=== PATIENT | female | born 1955 | race Caucasian/White ===

== ENCOUNTER 2017-12-02 07:35 | Day surgery (SDC) | payer BC ==
[~2017-12-02 07:35] MED LIST: Buffered Lidocaine 0.9% SYRIN* 5 ML/SYR SYRINGE INTRADERM ONE; Famotidine IV* 10 MG/ML 2 ML (20 mg) IV ONE
[2017-12-02] MEDS ORDERED: Famotidine IV* 10 MG/ML 2 ML (20 mg) ONE (08:04)
[2017-12-02] MEDS ORDERED: Bupivacaine 0.25% SDV* 30 ML ONE (08:18)
[2017-12-02] MEDS ORDERED: Midazolam* 1 MG/ML 2 ML VIAL (2 MG) ONE ×2 (08:29→08:52)
[2017-12-02] MEDS ORDERED: fentaNYL* 50 MCG/ML 2 ML VIAL (100 MCG VIAL) ONE (08:29)
[2017-12-02] MEDS ORDERED: Propofol* 10 MG/ML 20 ML BTL IV PUSH ONE (08:29)
[2017-12-02 09:25] VITALS: BP 104/59
[2017-12-02] MEDS ORDERED: Metoclopramide IV* 5 MG/ML 2 ML VIAL ONE (10:15)
[2017-12-02] MEDS ORDERED: Ketorolac INJ* 30 MG/ML 1 ML VIAL ONE (10:15)
--- NOTE | 2017-12-02 13:04 | OP ---
DATE OF OPERATION: 12/02/17 [facility] DATE OF : 59 SURGEON: Joseph Powers MD CORPORATE TRAFFIC MANAGER: DANILO Ta ANESTHESIOLOGIST: Dr. Callejas. ANESTHESIA: Local MAC. PRE-OP DIAGNOSES: 1. Left trigger thumb. 2. Left middle trigger finger. POST-OP DIAGNOSES: 1. Left trigger thumb. 2. Left middle trigger finger. OPERATIVE PROCEDURE: 1. Release of left trigger thumb with release of A1 laura. 2. Release of left middle finger with release of left middle trigger finger with release of A1 laura. INDICATIONS: Rama has a very severe left middle trigger finger and also some left trigger thumb problems. These have recurred. We talked to her about risks and benefits and she wanted to do the release. ESTIMATED BLOOD LOSS: 2 mL. COMPLICATIONS: None. FINDINGS: None. DESCRIPTION OF PROCEDURE: Rama was seen in the preoperative holding area. The correct side, site, and procedure were identified. We came back to the operating room where the arm was prepped and draped in the usual fashion. A time-out was performed. A transverse 1 cm incision was made over the left thumb A1 laura. Dissection was carried down bluntly and the digital nerves were retracted. The A1 laura was released longitudinally in line with the tendon with the #15 blade. This was extended proximally and distally with the tenotomy scissors taking care to preserve the oblique fully. Once the tendon was completely released, we irrigated out the wound and the skin was closed with 4-0 nylon suture. I next made an oblique incision over the middle finger A1 laura in line with the skin crease. The dissection was bluntly carried down, the tendon sheath was exposed. The #15 blade was used to longitudinally incise the A1 laura on the radial third. The release was again completed distally and proximally with the tenotomy scissors. Once there were no more areas of stricture around the tendon, we irrigated out the wound. The skin was closed with 4-0 nylon suture. The wounds were dressed, tourniquet was deflated and she was taken to the recovery room in stable condition. [id number]/CPS #: [id number] MTDD
== END 2017-12-02 09:42 | disposition home or self-care (01) ==
LOC: OREAST 07:35
PROVIDERS: ATTEND Orthopaedic Surgery Hand Surgery
DX: M65.312 Trigger thumb, left thumb (principal); M65.332 Trigger finger, left middle finger; E11.9 Type 2 diabetes mellitus without complications; Z79.84 Long term (current) use of oral hypoglycemic drugs; I10 Essential (primary) hypertension; M19.90 Unspecified osteoarthritis, unspecified site
CPT/HCPCS: J1885; J2250; J2704; J2765; J3010

== ENCOUNTER 2019-06-23 10:05 | Emergency (ER) | payer BC ==
--- OUTSIDE RECORDS SUMMARY | 2019-06-23 11:26 | XMS REPORT | Continuity of Care Document ---
:1955 External Reference #:[id number] Author Name Pat Painting MD Address [address] [place] [id number] Care Team Providers Name Role Phone Jax Hartley - Pain Medicine Care Team Information Orthopedics Nurse Anibal Sanz MD - Surgery Care Team Information Orthopedics Nurse [phone] Luna Randhawa MD - Orthopaedic Care Team Information Orthopedics Nurse Surgery Joseph Powers DR - Orthopaedic Care Team Information Orthopedics Nurse Surgery [employer] [facility] Care Team Information Orthopedics Nurse [phone] Live [place] MD - Care Team Information Orthopedics Nurse [phone] Gastroenterology Problems Active Problems Provider Date Type 2 diabetes mellitus Pat Painting MD Onset: 07/23/2009 Vitamin D deficiency Pat Painting MD Onset: 04/03/2009 Disorder of bone Pat Painting MD Onset: 11/18/2007 Benign essential hypertension Pat Painting MD Onset: 10/22/2004 Hypothyroidism Pat Painting MD Onset: 07/19/2014 Chronic cystitis Pat Painting MD Onset: 09/03/2015 Diaphragmatic hernia Pat Painting MD Onset: 02/25/2016 Low back pain Pat Painting MD Onset: 08/17/2017 Chronic kidney disease stage 3 Pat Painting MD Onset: 11/25/2017 Dysphagia Pat Painting MD Onset: 04/14/2018 Mixed hyperlipidemia Pat Painting MD Onset: 07/04/2018 Social History Type Date Description Comments Sex Unknown Tobacco Use Start: Unknown Never Smoked Cigarettes Smoking Status Reviewed: 04/06/19 Never Smoked Cigarettes ETOH Use 04/06/2019 Rarely consumes alcohol 1 drink per month Tobacco Use Start: Unknown Patient has never smoked Allergies, Adverse Reactions, Alerts Active Allergies Reaction Severity Comments Date Codeine Vomiting 07/19/2014 Metformin diarrhea 03/22/2015 Medications Active Medications SIG Qnty Indications Ordering Provider Date Vitamin D3 1 by mouth Title Coordinator 6 06/07/2018 2000Unit every day Tablets Atorvastatin Calcium 1 by mouth 90tabs E11.9 Pat Painting MD 11/25/2017 10mg every day Tablets E78.2 Ramipril 1 by mouth every 90caps I10 Mert 11/25/2017 2.5mg Capsules day MD Pat Aspirin Ec 1 by mouth daily 30tabs K55.031 Mert, 05/12/[address] Pat MD Chlorhexidine Gluconate 15 milliliters 473ml Mert, 11/25/2015 0.12% rinse and spit MD Pat Solution twice a day Pantoprazole Sodium 1 by mouth twice a 180tabs R13.10 Mert, 03/22/2015 40mg Tablets day MD SHEEBA Stewart Levothyroxine Sodium take 1 tablet by 90tabs E03.9 Mert, 10/27/2011 75mcg mouth once daily MD Pat Tablets Propranolol HCL ER take 1 capsule by 180caps I10 Mert, 09/07/2008 160mg Caps ER mouth twice a day MD Pat 24HR Hydrochlorothiazide take 1 capsule by 90caps I10 Mert, 01/07/2007 12.5mg mouth once daily MD Pat Capsules Lidocaine may apply up to 3 Unknown 5% Patches patches at a time x 12 hours per day Vesicare 1 po qd N30.20 Oh, In MD Doyle 5mg Tablets Lyrica 1 by mouth three M12.9 Unknown 100mg Capsules times a day M54.5 Immunizations CPT Code Status Date Vaccine Reaction Lot # 56035 Given 04/19/2019 Influenza Virus Vaccine,Quadrivalent,Split,Prese rv Free, 0.5mL,[place] [address] Given 04/06/2019 Prevnar 13 Pneumococal Conjugate [id number] Vaccine Q2039 Given 06/10/2018 Flu Vaccine NOS 59915 Given 01/31/2018 Hepatitis B Vaccine Adult Dosage [id number] 19337 Given 08/17/2017 Pneumococcal 23 Immunization [id number] Adult Or Immunosuppressed Patient 34812 Given 06/08/2017 Hepatitis B Vaccine Adult Dosage Pt tolerated well [id number] 00232 Given 04/08/2017 Hepatitis B Vaccine Adult Dosage [id number] Q2035 Given 04/03/2017 Afluria Imunization Q2037 Given 03/31/2016 Fluvirin Immunization 10026 Given 12/25/2015 Tdap (Adacel) Ages 7 And Above Only Q2035 Given 03/27/2015 Afluria Imunization [facility] Q2039 Given 03/20/2015 Flu Vaccine NOS 88777 Given 06/09/2013 Tdap (Adacel) Ages 7 And Above Only 88311 Given 04/20/2013 Afluria Or Fluvirin Flu Vac Intramuscular 12365 Given 09/21/2010 Tetanus And Diptheria Toxoid 7 Years And Older Preserv Free 01164 Given 04/19/2007 Afluria Or Fluvirin Flu Vac Intramuscular 66649 Refused 07/04/2018 Shingrix (Shingles) Zoster Vaccine HZV, Recombinant, Subunit, Adj Q2039 Refused 05/31/2018 Flu Vaccine NOS has not gotten flu shot yet, will get when feeling better Vital Signs Date Vital Result Comment 06/16/2019 3:53pm Weight 184.00 lb Heart Rate 65 /min BP Systolic 130 mmHg BP Diastolic 76 mmHg Respiratory Rate 16 /min Height 62.5 inches 5'2.50" O2 % BldC Oximetry 98 % Ra BMI (Body Mass Index) 33.1 kg/m2 04/06/2019 4:33pm Weight 189.00 lb Heart Rate 80 /min BP Systolic 124 mmHg BP Diastolic 70 mmHg Respiratory Rate 18 /min Height 62.5 inches 5'2.50" BMI (Body Mass Index) 34.0 kg/m2 Results Test Acquired Date Facility Test Result H/L Range Note Basic Metabolic 06/09/2019 [facility] Glucose 127 mg/ dL High 74-106 1 Panel Lab Dept [phone] BUN 15 mg/dL Normal 7-18 Creatinine 1.2 mg/dL Normal 0.6-1.3 Glom Filtration Rate, Estimate 48 mL/min >60 If 59 mL/min >60 2 BUN/Creat 12.5 ratio Sodium 140 mmol/L Normal 136-145 Potassium 3.7 mmol/L Normal 3.5-5.1 Chloride 106 mmol/L Normal 98-107 Carbon Dioxide 31 mmol/L Normal 21-32 Anion Gap 3 mEq/L Low 8-16 Calcium 8.7 mg/dL Normal 8.5-10.1 Laboratory test 06/09/2019 [facility] Thyroid Stim 1.20 Normal 0.30-4.20 finding Lab Dept Hormone uIU/mL [phone] LDL Cholesterol 06/09/2019 [facility] Cholesterol 109 mg/dL <200 3 Profile Lab Dept [phone] Triglycerides 89 mg/dL <150 4 HDL Cholesterol 49 mg/dL >40 5 LDL-Cholesterol 42 mg/dL < 100 6 Glycohemoglobin A1c 06/09/2019 [facility] Glycohemoglobin 6.5 % High 4.2-6.3 7 (315)- - (A1c) eAG 140 mg/dL Basic Metabolic 03/30/2019 [facility] Glucose 129 mg/ dL High 74-106 Panel Lab Dept [phone] BUN 18 mg/dL Normal 7-18 Creatinine 1.3 mg/dL Normal 0.6-1.3 Glom Filtration Rate, Estimate 44 mL/min >60 If 54 mL/min >60 8 BUN/Creat 13.8 ratio Sodium 141 mmol/L Normal 136-145 Potassium 3.8 mmol/L Normal 3.5-5.1 Chloride 105 mmol/L Normal 98-107 Carbon Dioxide 28 mmol/L Normal 21-32 Anion Gap 8 mEq/L Normal 8-16 Calcium 9.2 mg/dL Normal 8.5-10.1 Glycohemoglobin 03/30/2019 [facility] Glycohemoglobin 6.0 % Normal 4.2-6.3 9 A1c Lab Dept (A1c) [phone] eAG 126 mg/dL Laboratory 03/30/2019 [facility] Thyroid Stim 0.61 Normal 0.30-4.20 test finding Lab Dept Hormone uIU/mL [phone] LDL 03/30/2019 [facility] Cholesterol 113 mg/dL < 200 10 Cholesterol Lab Dept Profile [phone] Triglycerides 139 mg/dL <150 11 HDL Cholesterol 45 mg/dL >40 12 LDL-Cholesterol 40 mg/dL < 100 13 1 E11.9 E03.9 N18.3 E78.2 2 Note: Persistent reduction for 3 months or more in an eGFR <60 mL/min/1.73 m2 defines CKD. Patients with eGFR values >/=60 mL/min/1.73 m2 may also have CKD if evidence of persistent proteinuria is present. The original MDRD equation for estimated GFR is not valid for patients less than 18 years of age. Additional information may be found at www.kdoqi.org. 3 Reference Guidelines*: Desirable: ........... < 200 mg/dL Borderline High: ..... 200-239 mg/dL High: ................ >= 240 mg/dL * The National Cholesterol Education Program (NCEP) 4 Reference Guidelines*: Normal: ............. < 150 mg/dL Borderline High: .... 150-199 mg/dL High: ............... 200-499 mg/dL Very High: .......... > 500 mg/dL * Source: National Cholesterol Education Program (NCEP) 5 Reference Guidelines*: Low HDL: ..... < 40 mg/dL Normal: ..... 40-60 mg/dL Desirable: ... > 60 mg/dL *The National Cholesterol Education Program(NCEP) 6 Reference Guidelines*: Optimal:........... <100 mg/dL Near Optimal....... 100-129 mg/dL Borderline High.... 130-159 mg/dL High............... 160-189 mg/dL Very High.......... >=190 mg/dL * Source: National Cholesterol Education Program (NCEP) 7 Elevated levels of HbA1c suggest the need for more aggressive treatment of glycemia. The [place] [employer] recommends that a primary goal of therapy should be a HbA1c of <7% and that physicians should re-evaluate the treatment regimen in patients with HbA1c values consistently >8%. 8 Note: Persistent reduction for 3 months or more in an eGFR <60 mL/min/1.73 m2 defines CKD. Patients with eGFR values >/=60 mL/min/1.73 m2 may also have CKD if evidence of persistent proteinuria is present. The original MDRD equation for estimated GFR is not valid for patients less than 18 years of age. Additional information may be found at www.kdoqi.org. 9 Elevated levels of HbA1c suggest the need for more aggressive treatment of glycemia. The [place] [employer] recommends that a primary goal of therapy should be a HbA1c of <7% and that physicians should re-evaluate the treatment regimen in patients with HbA1c values consistently >8%. 10 Reference Guidelines*: Desirable: ........... < 200 mg/dL Borderline High: ..... 200-239 mg/dL High: ................ >= 240 mg/dL * The National Cholesterol Education Program (NCEP) 11 Reference Guidelines*: Normal: ............. < 150 mg/dL Borderline High: .... 150-199 mg/dL High: ............... 200-499 mg/dL Very High: .......... > 500 mg/dL * Source: National Cholesterol Education Program (NCEP) 12 Reference Guidelines*: Low HDL: ..... < 40 mg/dL Normal: ..... 40-60 mg/dL Desirable: ... > 60 mg/dL *The National Cholesterol Education Program(NCEP) 13 Reference Guidelines*: Optimal:........... <100 mg/dL Near Optimal....... 100-129 mg/dL Borderline High.... 130-159 mg/dL High............... 160-189 mg/dL Very High.......... >=190 mg/dL * Source: National Cholesterol Education Program (NCEP) Procedures Date Code Description Status 01/24/2018 251038991 Bone Mineral Density Test Completed 10/23/2017 [id number] Diabetic Retinal Eye Exam Completed 04/02/2016 [id number] Colonoscopy Completed 01/23/2016 [id number] Bone Mineral Density Test Completed 04/21/2012 [id number] Diabetic Foot Exam Completed Medical Devices Description No Information Available Encounters Type Date Location Provider Dx Diagnosis Office Visit 04/06/2019 4:15p [facility] Pat Painting MD E66.9 Obesity, unspecified E11.9 Type 2 diabetes mellitus without complications E55.9 Vitamin D deficiency, unspecified R51 Headache I10 Essential (primary) hypertension E03.9 Hypothyroidism, unspecified N30.20 Other chronic cystitis without hematuria K44.9 Diaphragmatic hernia without obstruction or gangrene E78.2 Mixed hyperlipidemia R13.10 Dysphagia, unspecified Z68.33 Body mass index (BMI) 33.0-33.9, adult N18.3 Chronic kidney disease, stage 3 (moderate) M54.5 Low back pain M85.89 Oth disrd of bone density and structure, multiple sites Z23 Encounter for immunization Z68.34 Body mass index (BMI) 34.0-34.9, adult Assessments Date Code Description Provider 06/16/2019 E66.9 Obesity, unspecified Pat Painting MD 06/16/2019 E11.9 Type 2 diabetes mellitus without complications Pat Painting MD 06/16/2019 E55.9 Vitamin D deficiency, unspecified Pat Painting MD 06/16/2019 I10 Essential (primary) hypertension Pat Painting MD 06/16/2019 N30.20 Other chronic cystitis without hematuria Pat Painting MD 06/16/2019 K44.9 Diaphragmatic hernia without obstruction or Pat Painting MD gangrene 06/16/2019 E78.2 Mixed hyperlipidemia Pat Painting MD 06/16/2019 R13.10 Dysphagia, unspecified Pat Painting MD 06/16/2019 N18.3 Chronic kidney disease, stage 3 (moderate) Pat Painting MD 06/16/2019 M54.5 Low back pain Pat Painting MD 06/16/2019 M85.89 Other specified disorders of bone density and Pat Painting MD structure, mul 06/16/2019 E03.9 Hypothyroidism, unspecified Pat Painting MD 06/16/2019 Z12.31 Encounter for screening mammogram for malignant Pat Painting MD neoplasm of breast 06/16/2019 Z68.33 Body mass index (BMI) 33.0-33.9, adult Pat Painting MD 04/06/2019 E66.9 Obesity, unspecified Pat Painting MD 04/06/2019 E11.9 Type 2 diabetes mellitus without complications Pat Painting MD 04/06/2019 E55.9 Vitamin D deficiency, unspecified Pat Painting MD 04/06/2019 R51 Headache Pat Painting MD 04/06/2019 I10 Essential (primary) hypertension Pat Painting MD 04/06/2019 E03.9 Hypothyroidism, unspecified Pat Painting MD 04/06/2019 N30.20 Other chronic cystitis without hematuria Pat Painting MD 04/06/2019 K44.9 Diaphragmatic hernia without obstruction or Pat Painting MD gangrene 04/06/2019 E78.2 Mixed hyperlipidemia Pat Painting MD 04/06/2019 R13.10 Dysphagia, unspecified Pat Painting MD 04/06/2019 Z68.33 Body mass index (BMI) 33.0-33.9, adult Pat Painting MD 04/06/2019 N18.3 Chronic kidney disease, stage 3 (moderate) Pat Painting MD 04/06/2019 M54.5 Low back pain Pat Painting MD 04/06/2019 M85.89 Other specified disorders of bone density and Pat Painting MD structure, mul 04/06/2019 Z23 Encounter for immunization Pat Painting MD 04/06/2019 Z68.34 Body mass index (BMI) 34.0-34.9, adult Pat Painting MD Plan of Treatment Future Appointment(s):12/25/2019 10:30 am - Pat Painting MD at [facility]06/16/2019 - Pat Painting MDE66.9 Obesity, unspecifiedComments:Counseled about strategies for weight loss and the impact of weight on chronic medical problems.Work on healthy lifestyle, with regular exercise (20 min daily will help) and eat a healthy diet. Formal diet plans work best.E11.9 Type 2 diabetes mellitus without complicationsNew Labs:Basic Metabolic Panel, Scheduled : 12/20/19Glycohemoglobin A1c, Scheduled: 12/20/19Comments:Diabetes is slightly worsening but at goal which is better than a year ago. This is diet controlled. She does not need any medication for this. She will continue taking aspirin. Blood sugars are 127, improving. HbA1c 6.5. Kidney function has improved.Follow up:Please request records from Dr. Oh. BALES with no Pap smear after 11/30/2019 - check labs prior.E55.9 Vitamin D deficiency, unspecifiedComments:She will continue taking her Vitamin D supplements daily. Continue [id number] Essential (primary) hypertensionNew Labs:CBS W/Automated Diff, Scheduled: 12/20/19Comments:Blood pressure at goal on current medication. However, optimum control is blood pressure of less than 120/80. Do not add salt to your food. Encourage regular exercise and healthy diet to improve blood pressure. She is taking ramipril which also protects her kidney.N30.20 Other chronic cystitis without hematuriaComments:She is using Vesicare with benefit. Continue with this.K44.9 Diaphragmatic hernia without obstruction or gangreneComments:symptoms controlled with qutanivkaqfgX77.2 Mixed hyperlipidemiaNew Labs:LDL Cholesterol Profile, Scheduled: 12/20/19Comments: Hyperlipidemia is well controlled with the use of atorvastatin. Continue with this. Cholesterol isexcellent.R13.10 Dysphagia, unspecifiedComments:She is taking pantoprazole regularly with benefit. Continue current medication.N18.3 Chronic kidney disease, stage 3 (moderate)New Labs:LDL Cholesterol Profile, Scheduled: 12/20/19Comments:CKD is improving. Minimize ibuprofen and Aleve intake.M54.5 Low back painComments:She is taking Lyrical with benefit. Continue current medication.M85.89 Other specified disorders of bone density and structure, mulComments:She is not due for DEXA yet.E03.9 Hypothyroidism, unspecifiedNew Labs:Thyroid Stim Hormone, Scheduled: 12/20/19Comments:TSH is normal. We will continue the same dose of current medication.Z12.31 Encounter for screening mammogram for malignant neoplasm of breastNew Xrays:Mammogram Screening, Bilateral Incl CAD When Performe, Ordered: 06/16/19Comments:We will schedule her mammogram today.Z68.33 Body mass index (BMI) 33.0-33.9, adultComments:Please request records from Dr. Martin with no Pap smear after 04/2020 - check labs prior. Functional Status Functional Condition Comment Date Status Complete lower and upper and lower dentures 04/21/2018 Active Mental Status Description No Information Available Referrals Description No Information Available
[2019-06-23 11:42] VITALS: BP 93/65
--- NOTE | 2019-06-23 11:57 | UC ---
Respiratory Complaint HPI - HPI Summary HPI Summary: Patient is a 64yo female presenting with sinus congestion, sore throat, and PND x6 days. Notes fever at onset of symptoms, none since. Notes worsening congestion despite use of decongestant. Notes nonproductive cough and diarrhea x2 days. Denies SOB and wheezing. Denies blood in the stool. Denies n/v and abdominal pain. Noted mild decreased appetite and normal fluid intake. Denies concern for strep throat. - History of Current Complaint Chief Complaint: UCRespiratory Stated Complaint: COUGH Hx Obtained From: Patient Pain Intensity: 0 - Allergies/Home Medications Allergies/Adverse Reactions: Allergies Allergy/AdvReac Type Severity Reaction Status Date / Time codeine Allergy Unknown Vomiting Verified 06/23/19 11:32 Home Medications: Home Medications guaiFENesin [Mucinex] 600 mg PO DAILY 06/23/19 [History Confirmed 06/23/19] PMH/Surg Hx/FS Hx/Imm Hx Endocrine History: Hypothyroidism Cardiovascular History: Hypertension GI/ History: Gastroesophageal Reflux - Surgical History Surgical History: Yes Surgery Procedure, Year, and Place: APPENDECTOMY; TONSILLECTOMY, 1989 HYSTERECTOMY; 1997 CHOLECYSTECTOMY [place]; 2013 VEINS STRIPPED, [facility]; 2010 & 2014 BOTH FEET TOES STRAIGHTENED, [place] [facility] [place] - Family History Known Family History: Positive: None, Hypertension Negative: Diabetes, Respiratory Disease - Social History Alcohol Use: Rare Alcohol Amount: FEW DRINKS/YR Substance Use Type: None Smoking Status (MU): Never Smoked Tobacco Have You Smoked in the Last Year: No Household Exposure Type: Cigarettes - Immunization History Most Recent Influenza Vaccination: March 2015 Review of Systems All Other Systems Reviewed And Are Negative: Yes Constitutional: Positive: Fever - at symptom onset 6 days ago. Negative: Chills ENT: Positive: Sore Throat, Nasal Discharge - PND, Sinus Congestion, Sinus Pain/ Tenderness. Negative: Ear Ache Respiratory: Positive: Cough - nonproductive. Negative: Shortness Of Breath Cardiovascular: Positive: Negative Gastrointestinal: Positive: Diarrhea - x2 days. Negative: Abdominal Pain, Vomiting, Nausea Genitourinary: Positive: Negative Musculoskeletal: Positive: Negative Neurological: Positive: Headache Physical Exam Triage Information Reviewed: Yes Appearance: Well-Appearing, No Pain Distress, Well-Nourished Vital Signs: Initial Vital Signs Temp 98.3 F 06/23/19 11:34 Pulse 69 06/23/19 11:34 Resp 16 06/23/19 11:34 BP 93/65 06/23/19 11:34 Pulse Ox 99 06/23/19 11:34 Lab Results 06/23/19 Range/Units 12:17 Influenza A (Rapid) Negative (Negative) Influenza B (Rapid) Negative (Negative) Vital Signs Reviewed: Yes Eyes: Positive: Conjunctiva Clear ENT: Positive: Hearing grossly normal, Nasal congestion, Nasal drainage - PND, TMs normal, Sinus tenderness - frontal and maxillary, Uvula midline. Negative: Pharyngeal erythema, Tonsillar swelling, Tonsillar exudate, Trismus, Muffled voice, Hoarse voice Neck exam: Normal Neck: Positive: Supple, Nontender, No Lymphadenopathy Respiratory Exam: Normal Respiratory: Positive: Lungs clear, Normal breath sounds, No respiratory distress Cardiovascular Exam: Normal Cardiovascular: Positive: RRR Abdominal Exam: Normal Abdomen Description: Positive: Nontender, Soft. Negative: CVA Tenderness (R), CVA Tenderness (L), Distended, Guarding Bowel Sounds: Positive: Present Neurological: Positive: Alert Psychological: Positive: Age Appropriate Behavior Skin Exam: Normal Respiratory Course/Dx - Course Course Of Treatment: Negative rapid flu. I treated patient with Augmentin for sinusitis and instructed to continue symptomatic treatment. Educated on acute diarrhea and instructed to increase fluid and fiber intake to help alleviate symptoms. Instructed patient to follow up with PCP if symptoms persist. Patient voiced understanding and agreed with treatment plan. - Differential Dx/Diagnosis Provider Diagnosis: Acute diarrhea, Acute rhinosinusitis, Post-nasal drainage Discharge ED - Sign-Out/Discharge Documenting (check all that apply): Patient Departure All imaging exams completed and their final reports reviewed: No Studies - Discharge Plan Condition: Stable Disposition: HOME Prescriptions: Amoxicillin/Clavulanate TAB* [Augmentin TAB 875*] 875 mg PO BID #14 tab Patient Education Materials: Rhinosinusitis (ED), Postnasal Drip (DC), Acute Diarrhea (ED) Referrals: Pat Painting MD [Primary Care Provider] - If Needed Additional Instructions: As discussed, take Augmentin for treatment of your sinusitis. You may also use Flonase or nasal spray for symptomatic relief. You may continue with ibuprofen as directed for pain relief. Increase your fluid and fiber intake to help alleviate diarrhea. Follow up with your primary care provider if symptoms do not resolve. - Billing Disposition and Condition Condition: STABLE Disposition: Home
[2019-06-23 12:29] LABS: Influenza A Molecular NEGATIVE (Negative); Influenza B Molecular NEGATIVE (Negative)
== END 2019-06-23 12:49 | disposition home or self-care (01) ==
LOC: UCCORT 10:05
DX: J01.90 Acute sinusitis, unspecified (principal); R09.82 Postnasal drip; R19.7 Diarrhea, unspecified; I10 Essential (primary) hypertension; Z88.5 Allergy status to narcotic agent
CPT/HCPCS: 99212; G0463